=== PATIENT | male | born 1985 | race Caucasian/White ===

== ENCOUNTER 2016-10-29 23:21 | Emergency (ER) | payer MEDICAID ==
[~2016-10-29] VITALS: Ht 175.3 cm; Wt 100.0 kg
[~2016-10-29 23:21] MED LIST: ALBUTEROL MDI
[2016-10-29] MEDS ORDERED: LORazepam 1MG TABLET PO ONE (23:30)
[2016-10-29] MEDS ORDERED: LORazepam 1MG TABLET ONE (23:40)
[2016-10-29 23:43] VITALS: BP 114/66
== END 2016-10-30 00:08 | disposition home or self-care (01) ==
LOC: ED 10-30 00:02
DX: F43.0 Acute stress reaction (principal); F41.9 Anxiety disorder, unspecified; K21.9 Gastro-esophageal reflux disease without esophagitis; F15.10 Other stimulant abuse, uncomplicated; F12.10 Cannabis abuse, uncomplicated
CPT/HCPCS: 99283

== ENCOUNTER 2017-07-08 21:18 | Emergency (ER) | payer MEDICAID ==
[~2017-07-08] VITALS: Ht 172.7 cm; Wt 100.3 kg
[2017-07-08 21:23] VITALS: BP 146/83
== END 2017-07-08 22:42 | disposition home or self-care (01) ==
LOC: ED 22:36
DX: M25.511 Pain in right shoulder (principal); M25.512 Pain in left shoulder; M79.89 Other specified soft tissue disorders; K21.9 Gastro-esophageal reflux disease without esophagitis
CPT/HCPCS: 99283